=== PATIENT | male | born 1970 | race Caucasian/White ===

== ENCOUNTER 2020-03-23 10:49 | Outpatient (CLI) | payer OTHER, SELFPAY ==
--- NOTE | 2020-03-23 10:00 | DI.RAD_ITS ---
EXAM: XR CHEST 2V PA LATERAL CLINICAL HISTORY: coughing and SOB x 6 months, elevated blood pressure reading, R03.0 TECHNIQUE: 2D digital imaging was performed. COMPARISON: No exams were available for comparison FINDINGS: MEDIASTINUM: Normal. HEART: Normal. PULMONARY VASCULATURE: Normal. LUNGS: Clear. PLEURAL SPACE: No pleural effusion or pneumothorax. BONE:Within normal limits for the patient's age. OTHER FINDINGS:Normal. IMPRESSION: No acute pulmonary findings. DATA REPOSITORY: RADIATION DOSE DELIVERED:
== END 2020-03-23 11:09 ==
PROVIDERS: PCP Nurse Practitioner; Visit Provider Nurse Practitioner Family
DX: R05 Cough (principal); R06.02 Shortness of breath; R03.0 Elevated blood-pressure reading, without diagnosis of hypertension
CPT/HCPCS: 71046

== ENCOUNTER 2020-05-11 02:22 | Outpatient (CLI) | payer OTHER, SELFPAY ==
[2020-05-11 13:28] LABS: Hemoglobin A1C 5.3 % (<5.7)
[2020-05-11 14:00] LABS: CREATININE 0.8 mg/dL (0.70-1.30); Calculated LDL 102 mg/dL (<100); Cholesterol 212 mg/dL (<200); HDL Cholesterol 102 mg/dL (40-60); Potassium 4.2 mmol/L (3.5-5.1); Triglyceride 42 mg/dL (<150)
== END 2020-05-11 02:23 | disposition home or self-care (01) ==
LOC: LBO 02:22
PROVIDERS: PCP Nurse Practitioner; Visit Provider Nurse Practitioner
DX: I10 Essential (primary) hypertension (principal); Z13.6 Encounter for screening for cardiovascular disorders; Z13.1 Encounter for screening for diabetes mellitus
CPT/HCPCS: 36415; 80061; 82565; 83036; 84132

== ENCOUNTER 2020-06-14 03:00 | Outpatient (CLI) | payer OTHER, SELFPAY ==
[2020-06-15 13:07] LABS: COVID-19 RT-PCR UVMMC Result Negative (Negative)
== END 2020-06-14 03:01 | disposition home or self-care (01) ==
LOC: LBO 03:00
PROVIDERS: PCP Nurse Practitioner; Visit Provider Nurse Practitioner
DX: Z20.828 Contact with and (suspected) exposure to other viral communicable diseases (principal)
CPT/HCPCS: U0003

== ENCOUNTER 2021-08-15 17:54 | Emergency (ER) | payer OTHER, SELFPAY ==
[2021-08-15 17:57] VITALS: BP 160/89; PULSE 109; RESP 14; TEMP 37.1; O2SAT 91
--- NOTE | 2021-08-15 18:00 | RT.EKG_ITS ---
APPROVED REPORT Exam: Resting ECG Reason for Exam: DYSPNEA Patient Location: E HR:98 bpm ECG Measurements Heart Rate 98 AXIS MI 133 P -11 QRSd 82 QRS -16 QT 338 T 2 QTc 432 Conclusion Sinus rhythm...normal P axis, V-rate 60- 99 Left ventricular hypertrophy...multiple voltage criteria
[2021-08-15 18:08] VITALS: O2SAT 94
--- NOTE | 2021-08-15 18:30 | DI.RAD_ITS ---
Exam(s) XR CHEST 2V PA LATERAL EXAM: XR CHEST 2V PA LATERAL CLINICAL HISTORY: SOB/Cough TECHNIQUE: 2D digital imaging was performed of the chest. Two images were obtained. PA and lateral views were obtained. COMPARISON: CR XR CHEST 2V PA LATERAL from 03/23/2020 FINDINGS: MEDIASTINUM: Normal. HEART: Normal. PULMONARY VASCULATURE: Normal. LUNGS: Clear. PLEURAL SPACE: No pleural effusion or pneumothorax. BONE:Within normal limits for the patient's age. OTHER FINDINGS:Normal. IMPRESSION: No acute pulmonary findings. DATA REPOSITORY: RADIATION DOSE DELIVERED:
[2021-08-15 18:55] VITALS: RESP 18
[2021-08-15] MEDS: Dexamethasone 10 MG/ML VIAL IVP (19:00)
[2021-08-15] MEDS: Albuterol/Ipratropium 3 ML UPD VIAL UPD (19:00)
[2021-08-15 19:08] LABS: Abs Immature Grans 0.02 10^3/uL (0.0-0.06); Absolute Eosinophil Count 0.85 10^3/uL (0.0-0.7); Absolute Lymphocyte Count 1.35 10^3/uL (1.2-3.4); Absolute Monocyte Count 1.02 10^3/uL (0.1-0.8); Absolute Neutrophil Count 7.38 10^3/uL (1.2-6.7); Basophils % 0.9; Eosinophils % 7.9; HCT 47.1 % (40.0-50.0); HGB 16.1 g/dL (13.5-17.5); Immature Grans % 0.2; Lymphocytes % 12.6; MCH 30.8 pg (27.0-33.0); MCHC 34.2 % (32.0-36.0); MCV 90 fL (80-95); MPV 9.4 fL (8.0-11.0); Monocytes % 9.5; Neutrophils % 68.9; Platelet Count 288 10^3/uL (130-400); RBC 5.23 10^6/uL (4.36-5.78); RDW 12.1 % (11.8-14.1); RDW-SD 39.8 fL; WBC 10.72 10^3/uL (4.4-10.8)
[2021-08-15 19:10] LABS: Source Nasal/Nares
[2021-08-15 19:27] LABS: ALT 23 U/L (16-63); AST 20 U/L (15-37); Albumin 4.1 g/dL (3.4-5.0); Alkaline Phosphatase 105 U/L (46-116); Anion Gap 11.2 mmol/L (3-11); BUN 15 mg/dL (7-18); Bilirubin, Total 1.1 mg/dL (0.2-1.0); CO2 24.8 mmol/L (21.0-32.0); CREATININE 0.9 mg/dL (0.70-1.30); Calcium 9.7 mg/dL (8.5-10.1); Chloride 99 mmol/L (98-107); Glucose 82 mg/dL (74-106); Potassium 4.3 mmol/L (3.5-5.1); Sodium 135 mmol/L (136-145); Total Protein 8.2 g/dL (6.4-8.2); Troponin I < 50 ng/L (<or=60)
[2021-08-15 19:43] LABS: D-Dimer 209 ng/mlFEU (<500)
--- NOTE | 2021-08-15 19:52 | ED.GENADUL_ITS ---
Discharge Plan Disposition Patient Disposition: HOME Condition: Improving Discharge Details Clinical Impression: Shortness of breath Primary Care Provider: Jesika Tolbert ED Provider: Jesús Marsh Home Meds and New Rx's Prescriptions: New prednisone 20 mg tablet 40 mg PO DAILY Qty: 10 0RF Continued lisinopril 40 mg tablet 40 mg PO DAILY Qty: 90 3RF Discharge Instructions Instructions: Dyspnea (ED) Additional Instructions: If you develop any new or worsening symptoms please return to the emergency department immediately for reassessment. It would be important to take the oral steroid as directed. You may use the provided inhaler every 4 hours as needed for shortness of breath or wheezing. If you develop chest pain, fever, worsening shortness of breath, or any further concerns again return to the emergency department otherwise follow-up with your primary care provider as you may need further testing of your lungs. Referrals: Jesika Tolbert, [facility] [Primary Care Provider] - 1 week Medical Decision Making Patient presenting to the emergency department for chief complaint of shortness of breath with slight cough. He states this is been going on for the past couple days. Patient denies any fever chills, does state exertional dyspnea, denies chest pain, belly pain, or other systemic symptoms. Patient has history of former tobacco use with occasional marijuana use and hypertension. Physical exam shows a 50-year-old male with increased work of breathing, diffuse inspiratory and expiratory wheezing, otherwise unremarkable cardiac exam. Patient denies any history of asthma or COPD. We will plan on performing labs and EKG along with D-dimer given that patient is slightly hypoxic and tachycardic on presentation. Patient states he has had 2 Moderna vaccines and otherwise denies sick contacts. Pending results we will give Decadron and DuoNeb. Please see full physician interpretation of EKG but EKG is sinus rhythm, rate of 98, with machine reading some left ventricular hypertrophy, no acute ischemic or emergent findings are noted. Reassessed after DuoNeb and did note improvement on wheezing and now only has expiratory wheezing. Will give patient 2 more albuterol treatments Review of labs show a negative troponin, less than 500 D-dimer, nondiagnostic CBC, slight elevation of anion gap, sodium of 135, and total bilirubin of 1.1 otherwise nondiagnostic CMP, patient is negative for COVID-19. We will plan on giving patient a liter of NS pending x-ray Review of chest x-ray shows no worrisome findings but radiologist does note possible COPD. Discussed this with patient and patient states no previous diagnosis of COPD or asthma. He does state that he was feeling significantly better. After fluids were completed we did have patient get up and walk around the department and he states about 90% improvement based upon where he was at when he came to the emergency department. Patient's oxygen though still remained low around 92%. I question possible new diagnosis of COPD versus nondiagnosed asthma. We will plan on sending patient home with albuterol inhaler and continuing steroid burst for 5 days. Patient was placed on a referral list to follow-up with primary care provider preferably next week for reassessment along with consideration of PFT testing. Given consideration of new diagnosis of COPD with oxygen readings noted to be between 90 and 93. Discussed admission with patient for more urgent PFT testing but at this time patient declined. After discussion of diagnosis and plan of care patient has no further needs, questions, or concerns and states clear understanding to return to the emergency department for any worsening symptoms. Imaging Data Radiologic Study: Imaging: X-Ray Radiologist's impression: IMPRESSION: 1. No acute thoracic process. 2. Question mild changes of COPD. Lab Data Lab results reviewed: Yes I reviewed the patient's lab results. Labs: Laboratory Tests Range/Units 08/15/21 08/15/21 08/15/21 18:52 18:52 18:52 WBC (4.4-10.8) 10^3/uL 10.72 RBC (4.36-5.78) 10^6/uL 5.23 Hgb (13.5-17.5) g/dL 16.1 Hct (40.0-50.0) % 47.1 MCV (80-95) fL 90 MCH (27.0-33.0) pg 30.8 MCHC (32.0-36.0) % 34.2 RDW (11.8-14.1) % 12.1 Plt Count (130-400) 10^3/uL 288 MPV (8.0-11.0) fL 9.4 Immature Gran % 0.2 Neutrophils % 68.9 Lymphocytes % 12.6 Monocytes % 9.5 Eosinophils % 7.9 Basophils % 0.9 Nucleated RBC % (0.0-0.3) % 0.0 Absolute Neutrophils (1.2-6.7) 10^3/uL 7.38 H Absolute Lymphocytes (1.2-3.4) 10^3/uL 1.35 Absolute Monocytes (0.1-0.8) 10^3/uL 1.02 H Absolute Eosinophils (0.0-0.7) 10^3/uL 0.85 H Absolute Basophils (0.0-0.2) 10^3/uL 0.10 D-Dimer (<500) ng/mlFEU Sodium (136-145) mmol/L 135 L Potassium (3.5-5.1) mmol/L 4.3 Chloride (98-107) mmol/L 99 Carbon Dioxide (21.0-32.0) mmol/L 24.8 Anion Gap (3-11) mmol/L 11.2 H BUN (7-18) mg/dL 15 Creatinine (0.70-1.30) mg/dL 0.9 Estimated GFR/1.73 m2 (mL/min/1.73m2) >= 60.00 Glucose (74-106) mg/dL 82 Calcium (8.5-10.1) mg/dL 9.7 Magnesium (1.8-2.4) mg/dL 2.0 Total Bilirubin (0.2-1.0) mg/dL 1.1 H AST (15-37) U/L 20 ALT (16-63) U/L 23 Alkaline Phosphatase (46-116) U/L 105 Troponin I (<or=60) ng/L < 50 Total Protein (6.4-8.2) g/dL 8.2 Albumin (3.4-5.0) g/dL 4.1 COVID-19 Source Nasal/Nares SARS-CoV-2 (PCR) (Negative) Negative Range/Units 08/15/21 18:52 WBC (4.4-10.8) 10^3/uL RBC (4.36-5.78) 10^6/uL Hgb (13.5-17.5) g/dL Hct (40.0-50.0) % MCV (80-95) fL MCH (27.0-33.0) pg MCHC (32.0-36.0) % RDW (11.8-14.1) % Plt Count (130-400) 10^3/uL MPV (8.0-11.0) fL Immature Gran % Neutrophils % Lymphocytes % Monocytes % Eosinophils % Basophils % Nucleated RBC % (0.0-0.3) % Absolute Neutrophils (1.2-6.7) 10^3/uL Absolute Lymphocytes (1.2-3.4) 10^3/uL Absolute Monocytes (0.1-0.8) 10^3/uL Absolute Eosinophils (0.0-0.7) 10^3/uL Absolute Basophils (0.0-0.2) 10^3/uL D-Dimer (<500) ng/mlFEU 209 Sodium (136-145) mmol/L Potassium (3.5-5.1) mmol/L Chloride (98-107) mmol/L Carbon Dioxide (21.0-32.0) mmol/L Anion Gap (3-11) mmol/L BUN (7-18) mg/dL Creatinine (0.70-1.30) mg/dL Estimated GFR/1.73 m2 (mL/min/1.73m2) Glucose (74-106) mg/dL Calcium (8.5-10.1) mg/dL Magnesium (1.8-2.4) mg/dL Total Bilirubin (0.2-1.0) mg/dL AST (15-37) U/L ALT (16-63) U/L Alkaline Phosphatase (46-116) U/L Troponin I (<or=60) ng/L Total Protein (6.4-8.2) g/dL Albumin (3.4-5.0) g/dL COVID-19 Source SARS-CoV-2 (PCR) (Negative) HPI General Mode of arrival: ambulatory . Date/Time Provider Initiated Documentation: 08/15/21 18:19 . Limitations to Documentation: no limitations . Information obtained by: patient, family and RN notes reviewed . History of Present Illness 50 year old M presents to the emergency department with the chief complaint of SOB and cough, described as moderate, Quality is described as other (denies pain), Patient reports no radiation. Patient started experiencing this day(s) (2) and it has been constant. No relieving factors improve symptom(s), Other factors that worsen symptoms (activity) . Patient notes loss of appetite and malaise. Patient did receive the following treatments prior to arrival, none Related Data Home Medications Medication Instructions Recorded Confirmed lisinopril 40 mg tablet 40 mg PO DAILY #90 tabs 09/11/20 08/15/21 prednisone 20 mg tablet 40 mg PO DAILY #10 tabs 08/15/21 Previous Rx's Medication Instructions Recorded lisinopril 40 mg tablet 40 mg PO DAILY #90 tabs 09/11/20 prednisone 20 mg tablet 40 mg PO DAILY #10 tabs 08/15/21 Allergies Allergy/AdvReac Type Severity Reaction Status Date / Time amoxicillin AdvReac Skin Rash Verified 08/15/21 18:07 General Stated Complaint: SOB JUDI: 3 Review of Systems Constitutional Constitutional: Denies chills, Denies fever(s), Denies headache(s), Reports lethargy and Reports malaise ENT Ears, Nose, Mouth, and Throat: Denies dizziness, Denies headache(s), Denies nasal congestion, Denies nasal discharge and Denies sore throat Cardiovascular Cardiovascular: Reports as per HPI, Denies chest pain, Denies chest pain with activity, Denies syncope, Denies irregular heart rhythm, Denies leg edema, Denies lightheadedness, Denies palpitations, Reports dyspnea and Reports dyspnea on exertion Respiratory Respiratory: Reports cough, Denies hemoptysis, Reports dyspnea and Reports dyspnea on exertion Gastrointestinal Gastrointestinal: Denies abdominal pain, Denies nausea and Denies vomiting Genitourinary Genitourinary: Denies oliguria Neurologic Neurologic: Denies dizziness, Denies syncope and Denies headache(s) Psychiatric Psychiatric: Denies anxiety Endocrine Endocrine: Denies cold intolerance, Denies heat intolerance and Denies palpitations PFSH All Active Problems Shortness of breath (Acute) Bilateral tinnitus (Acute) Eczema (Acute) Hypertension (Chronic) IBS (irritable bowel syndrome) (Chronic) Excessive drinking alcohol (Acute) Medical History Cervical strain 09/2004 Surgical History Status post ORIF of fracture of ankle Left Ankle Family History Mother No problems noted. Brother No problems noted. Brother No problems noted. Social History Smoking/Tobacco Use Status: Former Tobacco Use tobacco type: cigarettes Quit Date: 03/16/15 Tobacco: How many years used: 6 Second Hand Exposure: Yes Smoking risk assessment performed?: Yes Alcohol Intake: current Alcohol Intake frequency: a few times a week Alcohol type: beer Drug use: Occasionally Substance use type: marijuana Caregiver/Support person: No Household members: none Housing: house Communication Needs: None Do you need help understanding health information?: Never Pets and animals: Yes Pets and animals: dog(s) and farm animals Sexually active: Yes Do you think of yourself as: straight/heterosexual Current gender identity: male What is your relationship status?: How often do you talk on the phone with friends or family?: once per week How often do you get together with friends or relatives?: twice per week How often do you attend hindu or pentecostalism services?: 1-3 times per year Do you belong to any clubs or organized social groups?: yes Panel score (0-1 are the most socially isolated patients): 3 What type of physical activity do you participate in: other Details: outdoor rec hunting fishing Duration: 60-90 minutes/day Frequency: 1-2 times per week Luz/Judaism: Restoration Special luz needs: No Seatbelt use: sometimes Drive intox or ride w/intox interstate bus driver: No Do you feel safe at home: Yes Do you feel safe in your relationship?: Yes Exam Const General: cooperative, healthy appearing, comfortable and not diaphoretic Nutritional Appearance: average body habitus Orientation: alert, awake and oriented x3 Limitations: mental status not altered Neck Neck: normal visual inspection, full ROM, trachea midline, supple and no anterior neck swelling Carotids: normal carotid upstroke Chest Chest: normal inspection of the chest Resp Effort & Inspection: normal respiratory effort and able to speak in complete sentences Auscultation: wheezes expiratory wheezes, inspiratory wheezes and scattered wheezes Cardio Jugular venous pressure: no JVD Palpation: normal PMI Rate: regular rate Rhythm: regular rhythm Heart Sounds: S1 normal, S2 normal, no click, no gallops, no murmurs and no rubs Pulses: radial pulses present bilaterally 2+ Skin General skin exam: no rashes or lesions noted Neuro General: patient alert, patient awake, patient oriented x3, tone normal and moves all extremities Course Vital Signs Vital signs: Vital Signs Temperature 37.1 C 08/15/21 17:57 Pulse 109 H 08/15/21 17:57 Respiratory Rate 14 08/15/21 17:57 Blood Pressure 160/89 H 08/15/21 17:57 Pulse Oximetry 91 L 08/15/21 17:57 Temperature 37.1 C 08/15/21 17:57 Temperature Source Temporal Artery Scan 08/15/21 17:57 Pulse 109 H 08/15/21 17:57 Respiratory Rate 18 08/15/21 18:55 Respiratory Effort 08/15/21 18:55 Respiratory Depth Normal 08/15/21 18:55 Respiratory Pattern Normal 08/15/21 18:55 Blood Pressure 160/89 H 08/15/21 17:57 Blood Pressure Position Sitting 08/15/21 17:57 Pulse Oximetry 94 08/15/21 18:08 Oxygen Delivery Method Nasal Cannula 08/15/21 19:00 Oxygen Flow Rate 2 08/15/21 18:08 Pain Level 0 08/15/21 17:57 Lab/Test Results Lab/Test Results: Laboratory Tests Range/Units 08/15/21 08/15/21 08/15/21 18:52 18:52 18:52 WBC (4.4-10.8) 10^3/uL 10.72 RBC (4.36-5.78) 10^6/uL 5.23 Hgb (13.5-17.5) g/dL 16.1 Hct (40.0-50.0) % 47.1 MCV (80-95) fL 90 MCH (27.0-33.0) pg 30.8 MCHC (32.0-36.0) % 34.2 RDW (11.8-14.1) % 12.1 Plt Count (130-400) 10^3/uL 288 MPV (8.0-11.0) fL 9.4 Immature Gran % 0.2 Neutrophils % 68.9 Lymphocytes % 12.6 Monocytes % 9.5 Eosinophils % 7.9 Basophils % 0.9 Nucleated RBC % (0.0-0.3) % 0.0 Absolute Neutrophils (1.2-6.7) 10^3/uL 7.38 H Absolute Lymphocytes (1.2-3.4) 10^3/uL 1.35 Absolute Monocytes (0.1-0.8) 10^3/uL 1.02 H Absolute Eosinophils (0.0-0.7) 10^3/uL 0.85 H Absolute Basophils (0.0-0.2) 10^3/uL 0.10 D-Dimer (<500) ng/mlFEU Sodium (136-145) mmol/L 135 L Potassium (3.5-5.1) mmol/L 4.3 Chloride (98-107) mmol/L 99 Carbon Dioxide (21.0-32.0) mmol/L 24.8 Anion Gap (3-11) mmol/L 11.2 H BUN (7-18) mg/dL 15 Creatinine (0.70-1.30) mg/dL 0.9 Estimated GFR/1.73 m2 (mL/min/1.73m2) >= 60.00 Glucose (74-106) mg/dL 82 Calcium (8.5-10.1) mg/dL 9.7 Magnesium (1.8-2.4) mg/dL 2.0 Total Bilirubin (0.2-1.0) mg/dL 1.1 H AST (15-37) U/L 20 ALT (16-63) U/L 23 Alkaline Phosphatase (46-116) U/L 105 Troponin I (<or=60) ng/L < 50 Total Protein (6.4-8.2) g/dL 8.2 Albumin (3.4-5.0) g/dL 4.1 COVID-19 Source Nasal/Nares Range/Units 08/15/21 18:52 WBC (4.4-10.8) 10^3/uL RBC (4.36-5.78) 10^6/uL Hgb (13.5-17.5) g/dL Hct (40.0-50.0) % MCV (80-95) fL MCH (27.0-33.0) pg MCHC (32.0-36.0) % RDW (11.8-14.1) % Plt Count (130-400) 10^3/uL MPV (8.0-11.0) fL Immature Gran % Neutrophils % Lymphocytes % Monocytes % Eosinophils % Basophils % Nucleated RBC % (0.0-0.3) % Absolute Neutrophils (1.2-6.7) 10^3/uL Absolute Lymphocytes (1.2-3.4) 10^3/uL Absolute Monocytes (0.1-0.8) 10^3/uL Absolute Eosinophils (0.0-0.7) 10^3/uL Absolute Basophils (0.0-0.2) 10^3/uL D-Dimer (<500) ng/mlFEU 209 Sodium (136-145) mmol/L Potassium (3.5-5.1) mmol/L Chloride (98-107) mmol/L Carbon Dioxide (21.0-32.0) mmol/L Anion Gap (3-11) mmol/L BUN (7-18) mg/dL Creatinine (0.70-1.30) mg/dL Estimated GFR/1.73 m2 (mL/min/1.73m2) Glucose (74-106) mg/dL Calcium (8.5-10.1) mg/dL Magnesium (1.8-2.4) mg/dL Total Bilirubin (0.2-1.0) mg/dL AST (15-37) U/L ALT (16-63) U/L Alkaline Phosphatase (46-116) U/L Troponin I (<or=60) ng/L Total Protein (6.4-8.2) g/dL Albumin (3.4-5.0) g/dL COVID-19 Source
[2021-08-15 20:05] LABS: COVID-19 PCR Negative (Negative)
--- NOTE | 2021-08-15 20:12 | DI.VRAD_ITS ---
PROCEDURE INFORMATION: Exam: XR Chest Exam date and time: 08/15/2021 7:50 PM Age: 50 years old Clinical indication: Cough and shortness of breath TECHNIQUE: Imaging protocol: XR of the chest. Views: 2 views. COMPARISON: CR XR CHEST 2V PA LATERAL 03/23/2020 10:23 AM FINDINGS: Lungs: Question slight hyperexpansion and hyperlucency with minimal diaphragmatic flattening suggesting possible COPD. Pulmonary vasculature grossly normal. No gross pulmonary infiltrates or edema pattern. Pleural spaces: No pleural effusion. No pneumothorax. Heart/Mediastinum: Heart size normal. No tracheal/mediastinal shift. Bones/joints: No acute osseous abnormalities are identified. IMPRESSION: 1. No acute thoracic process. 2. Question mild changes of COPD. Dictated and Authenticated by: Jose Moreno MD. Ordering:SADIQ Espinosa MD
[2021-08-15] MEDS: Normal Saline 1,000 ML 1000 ML IV (20:30)
[2021-08-15] MEDS: Albuterol 2.5 MG/3 ML INH SOLN VIAL 5 MG UPD (21:00)
--- NOTE | 2021-08-15 21:23 | NUR.NOTE ---
Pt walk test completed, O2 sat 92% entire time while walking around the department. Pt reports I couldn't walk around like this before I came in, I'm feeling so much better. 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
[2021-08-15 21:26] VITALS: BP 145/80; PULSE 79; RESP 19; O2SAT 93
[2021-08-15] MEDS: Albuterol HFA 8 GM 60 PUFF INH IH (21:32)
== END 2021-08-15 21:38 | disposition home or self-care (01) ==
PROVIDERS: Emergency Provider Nurse Practitioner Family; PCP Nurse Practitioner
DX: R06.02 Shortness of breath (principal); R05.1 Acute cough; R06.00 Dyspnea, unspecified
CPT/HCPCS: 80053; 87635; 93005; 94640; 96361; 96374; 99284; 71046; 83735; 84484; 85025; 85379; 93010; J1100; J7613; J7620

== ENCOUNTER 2022-08-05 04:05 | Outpatient (CLI) | payer OTHER, SELFPAY ==
[2022-08-05] MEDS: Albuterol HFA 18 GM 200 PUFF INH IH (16:04)
[2022-08-05] MEDS: Inhaler, Assist Device 1 EACH MC (16:04)
--- NOTE | 2022-08-07 13:56 | W.PFT ---
Date of service: 08/05/22 Time of Service: 14:26 Pulmonary Function Test Result Indications: Dyspnea Interpretation Spirometry: There technically no airflow limitation. There is a significant bronchodilator response. Lung Volumes: There is hyperinflation Diffusion Capacity: Normal diffusion Airway Pressure: Normal airways resistance. Impression There is borderline mild airflow obstruction with hyperinflation and a normal diffusion. This could represent uncontrolled asthma or COPD (chronic bronchitis) in the correct clinical setting. Clinical Correlation therefore is recommended.
== END 2022-08-05 04:06 | disposition home or self-care (01) ==
LOC: RT 04:05
PROVIDERS: PCP Nurse Practitioner Family; Visit Provider Nurse Practitioner Family
DX: R06.2 Wheezing (principal)
CPT/HCPCS: 94060; 94726; 94729